=== PATIENT | male | born 1945 | race Caucasian/White ===

== ENCOUNTER 2020-04-03 10:21 | Outpatient (NON) | payer MEDICARE, OTHER, SELFPAY ==
[2020-04-03 22:15] LABS: SARS-CoV-2 RNA PCR Negative
== END 2020-04-03 10:22 ==
PROVIDERS: Visit Provider Otolaryngology
DX: Z01.812 Encounter for preprocedural laboratory examination (principal); Z20.828 Contact with and (suspected) exposure to other viral communicable diseases
CPT/HCPCS: 87635; C9803; U0003

== ENCOUNTER 2020-08-23 08:33 | Outpatient (NON) | payer MEDICARE, OTHER, SELFPAY ==
[2020-08-23 23:29] LABS: SARS-CoV-2 RNA PCR Negative
== END 2020-08-23 08:34 ==
LOC: ANHCOVIDDT 08:35
PROVIDERS: Visit Provider Otolaryngology
DX: Z01.812 Encounter for preprocedural laboratory examination (principal); Z20.822 Contact with and (suspected) exposure to COVID-19
CPT/HCPCS: C9803; U0003

== ENCOUNTER → 2020-11-15 06:48 | Outpatient (CLI) | payer MEDICARE, OTHER, SELFPAY ==
[2020-11-15 19:22] LABS: SARS-CoV-2 RNA PCR Negative
== END ==
PROVIDERS: Visit Provider Otolaryngology
DX: Z01.812 Encounter for preprocedural laboratory examination (principal); Z20.822 Contact with and (suspected) exposure to COVID-19
CPT/HCPCS: C9803; U0003; U0005

== ENCOUNTER 2021-01-21 13:49 | Emergency (ER) | payer MEDICARE, OTHER, SELFPAY ==
[2021-01-21] VITALS (21 sets, daily range): BP systolic 97–139; BP diastolic 56–90; PULSE 88–99; RESP 12–20; TEMP 36.6–37.8; O2SAT 60–100
--- NOTE | ~2021-01-21 | CT_ITS ---
EXAMINATION: CT cervical spine wo con EXAM DATE: 01/21/2021 14:44 INDICATION: Fall, left posterior head injury. TECHNIQUE: Spiral CT of the cervical spine was performed without contrast. Axial images were reviewe d. Coronal and sagittal reformatted images cervical spine were also reviewed. The dose-length produc t (DLP) for this examination was 225.97 mGy-cm. The exposure was tailored according to patient size (auto mA exposure control), and iterative reconstruction (ASIR) was used as additional dose reduction technique. There is no prior study for comparison. FINDINGS: There is no evidence of acute cervical fracture. The odontoid process is intact. Pre-den s space is normal. Prevertebral soft tissue is normal. There are no soft tissue abnormalities ident ified. There is no disc space widening or traumatic vertebral body subluxation suspected. Moderate to severe disc disease C3-6. Overall mild to moderate cervical arthropathy. Surgical clips, lymph nod e dissection. Tracheostomy tube. Upper esophageal thickening could be radiation related changes such history. A detailed level by level evaluation of spondylosis can be added as addendum if requested. IMPRESSION: 1. No acute cervical fracture. 2. Cervical spondylosis. 3. Esophageal wall edema, could be radiation related change. Correlate with history. Reviewed, dictated and finalized at location A. IMPRESSION: 1. No acute cervical fracture. 2. Cervical spondylosis. 3. Esophageal wall edema, could be radiation related change. Correlate with hi story.
--- NOTE | ~2021-01-21 | CT_ITS ---
EXAMINATION: CT brain wo con DATE: 01/21/2021 14:44 INDICATION: Head injury. TECHNIQUE: Computed tomography (CT) of the head was performed without intravenous contrast. The mA wa s adjusted according to patient size. Iterative reconstruction technique was employed. The dose-lengt h product was 225.97 mGy-cm. COMPARISON: None FINDINGS: There is no intracranial hemorrhage, acute infarction, or abnormal intracranial mass lesion . The ventricles are normal in size. There is mild mucosal thickening in the paranasal sinuses. The o rbits are normal. The mastoid air cells are normal. There is cerumen in the external auditory canals. IMPRESSION: 1. Normal brain. Reviewed, dictated and finalized at location A. IMPRESSION: 1. Normal brain.
--- NOTE | 2021-01-21 14:02 | ED.WEAKNESS ---
HPI - Weakness General Chief complaint: Weakness <Jose Youngblood MD - Last Filed: 01/25/21 16:18> Stated complaint: trach issues <Jose Youngblood MD - Last Filed: 01/25/21 16:18> Time Seen by Provider: 01/21/21 13:57 <Jose Youngblood MD - Last Filed: 01/25/21 16:18> History of Present Illness HPI Narrative: 75 yo male w/ h/o esophageal cancer s/p tracheostomy & esophageal dialtion presents from home for weakness and dizziness. He reportedly requires frequent esophageal dilation. He was scheduled to have one today because he has not been able to take anything by mouth. today when his went to get him he was too weak and dizzy to stand. He does report some pain in the back of his head and neck since a fall a few days ago. History is limited due to nonverbal patient. <Jose Youngblood MD - Last Filed: 01/25/21 16:18> Related Data Home medications: Home Medications Medication Instructions Recorded Confirmed acetaminophen [Tylenol] 650 mg PO PRN PRN 01/21/21 ibuprofen 600 mg PO Q6H PRN 01/21/21 levothyroxine 100 mcg PO DAILY 01/21/21 mirtazapine 15 mg PO HS 01/21/21 omeprazole 40 mg PO DAILY 01/21/21 sertraline 100 mg PO DAILY 01/21/21 <Jose Youngblood MD - Last Filed: 01/25/21 16:18> Allergies/Adverse reactions: Allergies Allergy/AdvReac Type Severity Reaction Status Date / Time No Known Allergies Allergy Verified 01/21/21 14:12 <Jose Youngblood MD - Last Filed: 01/25/21 16:18> Review of Systems Constitutional: Constitutional: Denies fever(s) and Reports weakness <Jose Youngblood MD - Last Filed: 01/25/21 16:18> ENT: Reports dizziness <Jose Youngblood MD - Last Filed: 01/25/21 16:18> Cardiovascular: Cardiovascular: Denies chest pain <Jose Youngblood MD - Last Filed: 01/25/21 16:18> Respiratory: Respiratory: Reports dyspnea <Jose Youngblood MD - Last Filed: 01/25/21 16:18> Gastrointestinal: Gastrointestinal: Denies abdominal pain and Denies nausea <Jose Youngblood MD - Last Filed: 01/25/21 16:18> Genitourinary: Genitourinary: Reports no additional male genitourinary complaints <Jose Youngblood MD - Last Filed: 01/25/21 16:18> Neurologic: Reports dizziness, Denies syncope, Reports headache(s) and Reports weakness <Jose Youngblood MD - Last Filed: 01/25/21 16:18> [facility] Past Medical History Medical History: Medical History (Updated 01/23/21 @ 00:00 by Nataly Tadeo) Esophageal cancer Esophageal dilatation Tracheostomy in place <Jose Youngblood MD - Last Filed: 01/25/21 16:18> Social History Social History: Social History (Updated 01/21/21 @ 14:35 by Jose Youngblood MD) Gender identity (if verbalized by the patient): Male <Jose Youngblood MD - Last Filed: 01/25/21 16:18> Exam Const: General: no acute distress <Jose Youngblood MD - Last Filed: 01/25/21 16:18> Nutritional Appearance: thin <Jose Youngblood MD - Last Filed: 01/25/21 16:18> HENMT: Head: normal to inspection <Jose Youngblood MD - Last Filed: 01/25/21 16:18> Neck: Other: Tracheostomy in place <Jose Youngblood MD - Last Filed: 01/25/21 16:18> Chest: Chest palpation & inspection: normal inspection of the chest <Jose Youngblood MD - Last Filed: 01/25/21 16:18> Resp: Effort & Inspection: normal respiratory effort <Jose Youngblood MD - Last Filed: 01/25/21 16:18> Cardio: Rate: regular rate <Jose Youngblood MD - Last Filed: 01/25/21 16:18> Rhythm: regular rhythm <Jose Youngblood MD - Last Filed: 01/25/21 16:18> GI: GI Palp: Yes Soft to palpation and No Tenderness to palpation present (GI) <Jose Youngblood MD - Last Filed: 01/25/21 16:18> Skin: Other: pale finger tips with significnatly prolonged capillary refill. <Jose Youngblood MD - Last Filed: 01/25/21 16:18> Neuro: General: moves all extremities, no focal motor deficits and CN's II-XI intact
--- NOTE | 2021-01-21 14:14 | ECG_ITS ---
Measurements Intervals [place] Rate: 91 P: 80 NV: 176 QRS: 100 QRSD: 82 T: 96 QT: 363 QTc: 449 Interpretive Statements SINUS RHYTHM WITH SINUS ARRHYTHMIA RIGHT AXIS DEVIATION LOW QRS VOLTAGE IN LIMB LEADS BASELINE ARTIFACT- I, II, III, AVR, AVL, AVF, V1-V6 BORDERLINE ECG Electronically Signed On 01-21-2021 19:09:33 CDT by Rosendo Peng D.O.
[2021-01-21] MEDS: SODIUM CHLORIDE 0.9% IV 1,000 ML 999 ML IV CONT ×2 (14:24→17:43)
--- NOTE | 2021-01-21 14:24 | ECG_ITS ---
Measurements Intervals [place] Rate: 90 P: 77 CT: 182 QRS: 77 QRSD: 83 T: 80 QT: 353 QTc: 433 Interpretive Statements SINUS RHYTHM LOW QRS VOLTAGE IN LIMB LEADS BASELINE ARTIFACT- I, II, AVR, AVL, AVF, V1-V2, V4-V6 BORDERLINE ECG Electronically Signed On 01-21-2021 19:11:10 CDT by Rosendo Peng D.O.
[2021-01-21 15:38] LABS: Basophils Percent Auto 0.1 % (0.2-1.2); Hemoglobin 15.4 g/dL (14.0-18.0); Immature Granulocyte Absolute 0.04 K/mm3 (0.00-0.031); Immature Granulocyte Percent A 0.5 % (0-0.5); Lymphocytes Absolute Auto 0.57 K/mm3 (0.9-3.2); Mean Corpuscular HGB Conc 32.8 g/dl (32-36); Mean Corpuscular Hemoglobin 32.7 pg (26-34); Mean Corpuscular Volume 99.8 fl (80-100); Mean Platelet Volume 9.5 fl (7.4-10.4); Monocytes Absolute Auto 0.5 K/mm3 (0.1-0.6); Monocytes Percent Auto 6.3 % (2.6-8.5); Neutrophils Absolute Auto 7.1 K/mm3 (1.3-6.7); Neutrophils Percent Auto 86.1 % (45.5-73.1); Platelet Count Result 71 k/mm3 (150-375); Red Blood Count 4.71 M/mm3 (4.6-6.20); Red Cell Distribution Width 17.2 % (11.5-14.5); White Blood Count 8.2 K/mm3 (4.5-10.0)
[2021-01-21 16:02] LABS: Alanine Aminotransferase 192 U/L (4-50); Albumin Level 4.2 g/dL (3.5-5.1); Alkaline Phosphatase 107 U/L (38-126); Anion Gap 27 mmol/L (8-16); Aspartate Amino Transferase 475 U/L (17-59); Bilirubin,Total 1.1 mg/dL (0.2-1.3); Blood Urea Nitrogen 11 mg/dL (9-20); Calcium 8.6 mg/dL (8.4-10.2); Carbon Dioxide 13 mmol/L (22-30); Chloride 100 mmol/L (98-107); Estimated CRCL calculation 45 ml/min; Estimated Glomerular Filt Rate 59; Glucose 51 mg/dL (75-110); Sodium 140 mmol/L (137-145)
[2021-01-21 16:05] LABS: Glucose Point of Care 53 mg/dl (65-105)
[2021-01-21] MEDS: DEXTROSE 50% 25 GM/50 ML SYRINGE IV PUSH (16:14)
[2021-01-21] MEDS: DEXTROSE 10% 1,000 ML 50 ML IV CONT (16:19)
[2021-01-21 17:19] LABS: Glucose Point of Care 166 mg/dl (65-105)
--- NOTE | 2021-01-21 18:20 | PC.NURSE ---
Suctioned via trach with small amount thick green mucus return.
[2021-01-21 20:46] LABS: Glucose Point of Care 147 mg/dl (65-105)
[2021-01-21] MEDS: METOCLOPRAMIDE HCL INJ 10 MG/2 ML VIAL IV PUSH (21:17)
[2021-01-21] MEDS: KETOROLAC 15 MG/ML VIAL (*BKC) IV PUSH (21:18)
[2021-01-21] MEDS: SODIUM CHLORIDE 0.9% IV 1,000 ML 100 ML IV CONT (21:24)
--- NOTE | 2021-01-21 22:13 | PC.NURSE ---
Pt unable to provide urine sample at this time. Urinal placed at bedside
[2021-01-21 22:28] LABS: EDCOVIDSCREEN Negative (Negative)
[2021-01-21 22:33] LABS: Add Urine Microscopic? YES; Appearance Urine Cloudy (Clear); Bacteria Urine Trace /hpf; Bilirubin Urine Negative (Negative); Blood Urine Negative (Negative); Color Urine Yellow (Yellow); Glucose Urine UA Negative (Negative); Ketones Urine Trace mg/dL (Negative); Leukocyte Esterase Ur Negative LEU/UL (Negative); Mucus Urine Rare /lpf; Nitrate Urine Negative (Negative); Protein Urine 1+ mg/dL (Negative); RBC Urine 0-2 /hpf (0-2); Specific Grav Ur 1.014 (1.001-1.035); Squamous Epithelial Cell Urine Rare /hpf (Few); Urobilinogen Urine Negative mg/dL (<2.0); WBC Urine 0-3 /hpf
--- NOTE | 2021-01-21 22:51 | PC.NURSE ---
negative covid result called to Barbara at [facility].
[2021-01-22] VITALS (23 sets, daily range): BP systolic 107–164; BP diastolic 70–94; PULSE 75–113; RESP 15–26; TEMP 37.1–37.5; O2SAT 90–99
[2021-01-22 01:01] LABS: Glucose Point of Care 122 mg/dl (65-105)
--- NOTE | 2021-01-22 05:04 | PC.NURSE ---
Pt reporting pain 12/23. EDP Mayank notified.
[2021-01-22 06:16] LABS: Glucose Point of Care 109 mg/dl (65-105)
[2021-01-22 07:37] LABS: Alanine Aminotransferase 171 U/L (4-50); Albumin Level 3.7 g/dL (3.5-5.1); Alkaline Phosphatase 92 U/L (38-126); Anion Gap 9 mmol/L (8-16); Aspartate Amino Transferase 348 U/L (17-59); Bilirubin,Total 1.4 mg/dL (0.2-1.3); Blood Urea Nitrogen 12 mg/dL (9-20); Carbon Dioxide 26 mmol/L (22-30); Chloride 100 mmol/L (98-107); Estimated CRCL calculation 66 ml/min; Estimated Glomerular Filt Rate > 60; Glucose 116 mg/dL (75-110); Potassium 4.4 mmol/L (3.4-5.0); Sodium 135 mmol/L (137-145)
[2021-01-22] MEDS: DEXTROSE 10% 1,000 ML 50 ML IV CONT (17:20)
--- NOTE | 2021-01-22 18:59 | NBADM ---
This patient William Quevedo was born on at [birth year]. Apgars / .called [facility] at 0822 no bed available, called carlin at 1553 no bed available
[2021-01-22 19:46] LABS: Glucose Point of Care 126 mg/dl (65-105)
--- NOTE | 2021-01-22 20:04 | PC.NURSE ---
called [facility] to request transport. ETA [id number]
--- NOTE | 2021-01-22 20:12 | PC.NURSE ---
1999[facility], call placed for transport, estimated bulk picker time at [phone]
--- NOTE | 2021-01-22 21:19 | PC.NURSE ---
[facility] called to update ETA to [phone] [id number]
--- NOTE | 2021-01-22 22:42 | PC.NURSE ---
called [facility] for ETA update. ETA midnight
--- NOTE | 2021-01-22 22:46 | PC.NURSE ---
called [facility] to request transport.. [facility] declined
--- NOTE | 2021-01-22 23:06 | PC.NURSE ---
[facility] here.
--- NOTE | 2021-01-22 23:19 | PC.NURSE ---
2315-Patricia at [facility] called to advise EMS here for transport
== END 2021-01-22 23:20 | disposition short-term general hospital (02) ==
PROVIDERS: General Practice; Emergency Provider Emergency Medicine; PCP Internal Medicine
DX: R13.10 Dysphagia, unspecified (principal); E16.2 Hypoglycemia, unspecified; E86.0 Dehydration; C15.9 Malignant neoplasm of esophagus, unspecified; Z93.0 Tracheostomy status; Z20.822 Contact with and (suspected) exposure to COVID-19; R94.31 Abnormal electrocardiogram [ECG] [EKG]
CPT/HCPCS: 36415; 70450; 72125; 80053; 81001; 82948; 85025; 87426; 93005; 96361; 96365; 96375; 96376; 99285; A9270; C9803; J0131; J1885; J2765; J7030

== ENCOUNTER 2021-03-04 13:51 | Emergency (ER) | payer MEDICARE, OTHER, SELFPAY ==
[2021-03-04 14:41] VITALS: BP 103/63; PULSE 61; RESP 14; TEMP 36.3; O2SAT 98
--- NOTE | 2021-03-04 15:01 | ED.GENADULT ---
HPI - General Adult General Chief complaint: Unspecified Stated complaint: clogged feeding tube Time Seen by Provider: 03/04/21 14:56 Source: patient and family History of Present Illness HPI narrative: Patient is a 75 y/o male came for clogged J tube. Patient has previous history of esophageal cancer with esophagectomy and gastric pull through. He has history of esophageal stricture and recent dilatation. He has jejunal tube replaced at [place] about 1 month ago when he had colectomy for ischemic colon. Related Data Home Medications Medication Instructions Recorded Confirmed acetaminophen [Tylenol] 650 mg PO PRN PRN 01/21/21 ibuprofen 600 mg PO Q6H PRN 01/21/21 levothyroxine 100 mcg PO DAILY 01/21/21 mirtazapine 15 mg PO HS 01/21/21 sertraline 100 mg PO DAILY 01/21/21 Allergies Allergy/AdvReac Type Severity Reaction Status Date / Time No Known Allergies Allergy Verified 03/04/21 14:54 Review of Systems Review of Systems: All systems reviewed & are unremarkable except as noted in HPI and below Constitutional: Constitutional: Reports as per HPI Gastrointestinal: Gastrointestinal: Reports other (J tube clogged) [facility] Past Medical History Medical History Esophageal cancer Esophageal dilatation Tracheostomy in place Social History Social History Gender identity (if verbalized by the patient): Male Exam Const: General: no acute distress Nutritional Appearance: thin Orientation/consciousness: oriented to person, oriented to place, oriented to time and patient oriented x3 HENMT: Head: normocephalic Ears: external ears normal General nose exam: Normal external nose present Eyes: General: appearance normal, both eyes and all related structures Conjunctivae: conjunctivae normal Neck: Neck: normal visual inspection and full ROM Other: trach opening in place Chest: Chest palpation & inspection: normal inspection of the chest and no tenderness Resp: Effort & Inspection: normal respiratory effort Auscultation: clear to auscultation bilaterally Cardio: Rate: regular rate Rhythm: regular rhythm GI: Inspection: other (J tube in place, ileostomy in place) GI Palp: No abdominal tenderness and Yes Soft to palpation Skin: General skin exam: normal color and turgor normal Neuro: General: oriented to person, oriented to place, oriented to time and patient oriented x3 Cognition (Neuro): normal cognition Extrem: General: normal to inspection, full ROM and no pedal edema Psych: Appearance: grossly normal Mental Status: mental status grossly normal Affect: normal affect Course Reevaluation(s) Reevaluation #1: Attempted to flush J tube and not successful. Date: 03/04/21 Reevaluation #2: Discussed with patient and about transfer. They did not want to wait. They want to leave [place] and go to [place] themselves. Date: 03/04/21 Consultations Consultation #1: Discussed with Dr. Navarro (surgery) at [place], who recommends contacting radiology for exchange of J tube. Date: 03/04/21 Time: 17:22 Consultation #2: Discussed with Dr. Bansal, who states that he is not able to do J tube exchange. Will attempt to contact Dr. Navarro for possible transfer or other recommendation. Discussed with Dr. Navarro at [place] again. He agrees to accept the patient for transfer. Date: 03/04/21 Time: 17:30 Vital Signs Vital signs: Vital Signs Temperature 36.3 C L 03/04/21 14:41 Pulse Rate 61 03/04/21 14:41 Respiratory Rate 14 03/04/21 14:41 Blood Pressure 103/63 03/04/21 14:41 Pulse Oximetry 98 03/04/21 14:41 Temperature 36.3 C L 03/04/21 14:41 Pulse Rate 61 03/04/21 14:41 Respiratory Rate 14 03/04/21 14:41 Blood Pressure 103/63 03/04/21 14:41 Pulse Oximetry 98 03/04/21 14:41 Medical Decision Making Vital Signs Vital Signs: Vital Signs Temperature 36.3 C L 03/04/21 14:41
--- NOTE | 2021-03-04 15:30 | PC.NURSE ---
Attempted to flush J-tube without success. Unable to flush or aspirate per J-tube.
--- NOTE | 2021-03-04 17:35 | PC.NURSE ---
/pt requesting to leave hospital. Dr. Lockwood in to speak with pt and . AMA paperwork signed prior to leaving.
== END 2021-03-04 17:35 | disposition left against medical advice (07) ==
PROVIDERS: Emergency Provider Emergency Medicine; PCP Internal Medicine
DX: K94.13 Enterostomy malfunction (principal); Z85.01 Personal history of malignant neoplasm of esophagus; Z90.49 Acquired absence of other specified parts of digestive tract; F41.9 Anxiety disorder, unspecified; F32.9 Major depressive disorder, single episode, unspecified; Z92.3 Personal history of irradiation; Z92.21 Personal history of antineoplastic chemotherapy
CPT/HCPCS: 99282